=== PATIENT | female | born 1960 | race Caucasian/White ===

== ENCOUNTER → 2017-01-06 | Day surgery (SDC) | payer OTHER ==
[~2017-01-06] MED LIST: ACETAMINOPHEN 1000 MG/100 ML VIAL IV ONE; ACETAMINOPHEN/HYDROcodone 325 MG/5 MG TAB ONE; ALLE12TA PO; BUPIVACAINE/EPINEPHRINE 0.5% PF 10 ML VIAL ONE; CLINDAMYCIN PHOS 600 MG/4 ML VIAL ONE; ERGO50000 PO; GLUCTAB PO; LACTATED RINGER'S 1000 ML INJ 1,000 ML ONE; LIDOCAINE 1%/EPINEPHrine 1:100,000 SOLN 20 ML VIAL ONE; LORA0.5T PO; MEPERIDINE HCL 25 MG/ML VIAL ONE; MIDAZOLAM HCL 2 MG/2 ML VIAL ONE; ONDANSETRON HCL 4 MG/2 ML VIAL IV PUSH ONE; ONDANSETRON HCL 4 MG/2 ML VIAL ONE; PARO20TA PO; PROPOFOL 200 MG/20 ML AMP IV ONE; SODIUM CHLORIDE 0.9% 250 ML ADDBAG IV ONE; SULF-154 PO; [UNRECOGNIZED DRUG - OTHER] PO
--- NOTE | 2017-01-06 09:15 | TN ---
cc: CURTIS JONES M.D. DATE OF SURGERY 01/06/2017 PREOPERATIVE DIAGNOSIS Macromastic left breast. History of right breast cancer. Asymmetry POSTOPERATIVE DIAGNOSIS Macromastic left breast. PROCEDURE Left breast reduction. SURGEON Curtis Jones MD ANESTHESIA LMA general plus a total of 30 cc of 1% lidocaine with epinephrine mixed with 0.25% Marcaine at a 2:1 ratio. COMPLICATIONS None. PROCEDURE She was properly consented, marked, properly anesthetized, the skin sterilized with Betadine solution, sterile draping applied. Local anesthetic was done. The markings were done. The NAC was set at 23-cm from the sternal notch, 42-mm areolar diameter and we used an inferior pedicle of about 8-10 cm. With this, after utilizing the Ingrid's maneuver, the epithelization of the center pedicle was carried out leaving a 42-mm areolar diameter down to the base with 8-10 cm. The excessive skin at this point and breast tissue was removed laterally, superiorly and medially. Assured meticulous hemostasis. The closure of the flaps were done utilizing 2-0 Monocryl suture in the dermis and subcu. The new NAC was brought into the anatomical position and sutured as well utilizing the same suture material. Good viability of tissue was noted throughout and at the end of the case. For closure I utilized Prineo, Dermabond, absorbent dressings and a snug brassiere. Overall the patient tolerated the procedure well. She was awakened, extubated in the operating room and transferred back to the Post-Anesthesia Care Unit in stable condition. No complication appreciated. The patient tolerated the procedure fairly well. Curtis Jones MD [facility]INE /8:58 AM /9:09 AM CHANCE
== END | disposition home or self-care (01) ==
LOC: ESDC 06:17
PROVIDERS: ATTEND Plastic Surgery
DX: N65.1 Disproportion of reconstructed breast (principal); Z85.3 Personal history of malignant neoplasm of breast
CPT/HCPCS: 00402; 19318; 88305; J0131; J2175; J2250; J2405; J3010; J7120

== ENCOUNTER 2017-04-08 09:54 | Emergency (ER) | payer OTHER, MEDICARE ==
[~2017-04-08] VITALS: Ht 170.2 cm; Wt 100.0 kg
[~2017-04-08 09:54] MED LIST changes: -ACETAMINOPHEN 1000 MG/100 ML VIAL IV ONE; -ACETAMINOPHEN/HYDROcodone 325 MG/5 MG TAB ONE; -BUPIVACAINE/EPINEPHRINE 0.5% PF 10 ML VIAL ONE; -CLINDAMYCIN PHOS 600 MG/4 ML VIAL ONE; -LACTATED RINGER'S 1000 ML INJ 1,000 ML ONE; -LIDOCAINE 1%/EPINEPHrine 1:100,000 SOLN 20 ML VIAL ONE; -MEPERIDINE HCL 25 MG/ML VIAL ONE; -MIDAZOLAM HCL 2 MG/2 ML VIAL ONE; -ONDANSETRON HCL 4 MG/2 ML VIAL IV PUSH ONE; -ONDANSETRON HCL 4 MG/2 ML VIAL ONE; -PROPOFOL 200 MG/20 ML AMP IV ONE; -SODIUM CHLORIDE 0.9% 250 ML ADDBAG IV ONE
[2017-04-08 09:56] VITALS: BP 137/72; PULSE 80; RESP 18; TEMP 98; O2SAT 98
[2017-04-08] MEDS ORDERED: TRAD5TAB PO (10:04)
[2017-04-08] MEDS ORDERED: PRAV20TA2 PO (10:04)
[2017-04-08] MEDS ORDERED: FLUO1TAB3 PO (10:04)
[2017-04-08] MEDS ORDERED: METF500 PO (10:04)
[2017-04-08] MEDS ORDERED: METOCLOPRAMIDE HCL 10 MG/2 ML VIAL IV PUSH ONE (10:30)
[2017-04-08] MEDS ORDERED: SODIUM CHLOR 0.9% 1000 ML INJ 1,000 ML IV ONE (10:30)
[2017-04-08] MEDS ORDERED: MECLIZINE HCL 25 MG TAB PO ONE (10:30)
[2017-04-08] MEDS ORDERED: SODIUM CHLORIDE 0.9% FLUSH 10 ML FLUSH IVF PRN (10:30)
--- NOTE | 2017-04-08 10:34 | PD ---
HPI Chief Complaint: Dizziness Time Seen by Provider: 10:06 Travel History International Travel<30 days: No Contact w/Intl Traveler<30days: No Traveled to known affect area: No History of Present Illness HPI Patient is a 56-year-old female with history of vertigo, hypertension, hyperlipidemia, diabetes who presents to emergency with complaints of dizziness. Patient reports that she was outside working on her neighbors lawn and pulling weeds out this morning, reports that after an hour working outside, she began to feel lightheaded and dizzy. Patient reports that "it was really hot outside and I was sweating alot" reports that after an hour of work, she didn't feel right. She went inside and put a cold rag on her head and then took a shower. Reports that she felt a little better but when she stood up, she felt like headed and dizzy and vertiginous and reports "i felt like i was going to throw up." Patient reports that she feels as if the whole world is spinning at this time, reports acute onset of symptom, reports that she does feel better and has resolution of symptoms when she lays down and closes her eyes. Patient reports concern for possible heat exhaustion. Denies chest pain/sob at this time. Denies abdominal pain. No fever/chills. No other c/o. Reports that her did give her a bottle of water to drink - reports that she does feel a little better after the fluids PFSH Past Medical History Depression: Yes Cancer: Yes (BREAST 2001,2006,2013) Cardiovascular Problems: No Chemotherapy: Yes Diabetes: Yes Patient Takes Glucophage: Yes Diminished Hearing: No Endocrine: Yes Gastrointestinal Disorders: Yes (HEARTBURN, REFLUX, NAUSEA) Genitourinary: No Hepatitis: No Hiatal Hernia: No Hypertension: No Immune Disorder: No Musculoskeletal: Yes (LOWER BACK AND NECK, ARTHRITIS RIGHT SHOULDER) Neurologic: Yes (CARPAL TUNNEL BOTH HANDS WITH NUMBNESS neuropathy) Psychiatric: Yes (ANXIETY, DEPRESSION) Reproductive: No Respiratory: Yes (SLEEP APNEA (NO CPAP), CHRONIC COUGH) Immunizations Current: Yes Radiation Therapy: Yes (2001) Thyroid Disease: No Tetanus Vaccination: < 5 Years Influenza Vaccination: No ?: Not Menopausal: Yes Dilation and Curettage (D&C): Yes Past Surgical History Abdominal Surgery: No AICD: No Body Medical Devices: NONE Cardiac Surgery: No Endocrine Surgery: No Genitourinary Surgery: No Gynecologic Surgery: Yes (D&C NOT SURE) Joint Replacement: No Oral Surgery: Yes (tonsillectomy) Pacemaker: No Thoracic Surgery: Yes (R LUMPECTOMY 2001,2006, R MASTECTOMY 09/2014) Tonsillectomy: Yes Other Surgery: Yes ([facility]-PORT PLACED 04/15/14) Social History Alcohol Use: Yes ([facility]) Tobacco Use: No (QUIT IN 1987) Substance Use: No Allergies-Medications (Allergen,Severity, Reaction): Coded Allergies: Ibuprofen (Verified Allergy, Severe, NOSE BLEED, 11/08/14) Naprosyn (Verified Allergy, Severe, HIVES, 11/08/14) Penicillin (Verified Allergy, Severe, Rash/SOB, 11/08/14) Tamoxifen (Verified Allergy, Severe, HEADACHES, 11/08/14) Vancomycin (Verified Allergy, Severe, HEAD AND FACE TURN RED AND ITCHY, ) Adhesives (Verified Allergy, Intermediate, ITCH AND RASH, 11/08/14) Keflex (Verified Allergy, Intermediate, Hives, 11/08/14) Monistat 7 (Verified Allergy, Intermediate, LUMPS ON VAGINAL AREA, 11/08/14 ) Aspirin (Verified Allergy, Unknown, DOES NOT KNOW, 11/08/14) Celebrex (Verified Allergy, Unknown, DOES NOT REMEMBER, 11/08/14) Reported Meds & Prescriptions Reported Meds & Active Scripts Active Reported Pravastatin 20 Mg Tab 20 Mg PO DAILY Tradjenta (Linagliptin) 5 Mg Tab 5 Mg PO DAILY Fluoxetine (Fluoxetine HCl) 20 Mg Tab 20 Mg PO DAILY Glucophage (Metformin HCl) 500 Mg Tab 500 Mg PO BIDPC With meals Review of Systems General / Constitutional: No: Fever Eyes: No: Diploplia, Blurred Vision, Photophobia, Visual changes HENT: Positive: Vertigo, Lightheadedness, No: Headaches, Neck Stiffness, Neck Pain Cardiovascular: No: Chest Pain or Discomfort, Palpitations, Irregular Rhythm, Tachycardia Respiratory: No: Shortness of Breath Gastrointestinal: Positive: Nausea, Vomiting, No: Abdominal Pain Genitourinary: No: Dysuria Musculoskeletal: No: Pain Skin: No Rash Neurologic: Positive: Weakness, Dizziness, No: Syncope, Focal Abnormalities, Coordination Problem, Ataxia, Headache, Slurred Speech, Paresthesia, Incontinence, Seizures, Sensory Disturbance Psychiatric: No: Depression Endocrine: No: Polydipsia Hematologic/Lymphatic: No: Easy Bruising Physical Exam Narrative GENERAL: Mild distress SKIN: Focused skin assessment warm/dry. HEAD: Atraumatic. Normocephalic. EYES: Pupils equal and round. No scleral icterus. No injection or drainage. No nystagmus on exam ENT: No nasal bleeding or discharge. Mucous membranes pink and moist. NECK: Trachea midline. No JVD. CARDIOVASCULAR: Regular rate and rhythm. No murmur appreciated. RESPIRATORY: No accessory muscle use. Clear to auscultation. Breath sounds equal bilaterally. GASTROINTESTINAL: Abdomen soft, non-tender, nondistended. Hepatic and splenic margins not palpable. MUSCULOSKELETAL: No obvious deformities. No clubbing. No cyanosis. No edema. NEUROLOGICAL: Awake and alert. No obvious cranial nerve deficits. Motor grossly within normal limits. Normal speech. Cranial nerves to 12 grossly intact with no neurological deficits PSYCHIATRIC: Appropriate mood and affect; insight and judgment normal. Data Data Last Documented VS Vital Signs Date Time Temp Pulse Resp B/P Pulse Ox O2 Delivery O2 Flow Rate FiO2 04/08/17 11:41 76 18 131/70 96 Room Air 04/08/17 09:56 98.0 Orders Electrocardiogram (04/08/17 10:17) Basic Metabolic Panel (Bmp) (04/08/17 10:17) Ckmb (Isoenzyme) Profile (04/08/17 10:17) Complete Blood Count With Diff (04/08/17 10:17) Magnesium (Mg) (04/08/17 10:17) Prothrombin Time / Inr (Pt) (04/08/17 10:17) Act Partial Throm Time (Ptt) (04/08/17 10:17) Troponin I (04/08/17 10:17) Ecg Monitoring (04/08/17 10:17) Iv Access Insert/Monitor (04/08/17 10:17) Oximetry (04/08/17 10:17) Sodium Chloride 0.9% Flush (Ns Flush) (04/08/17 10:30) Ct Brain W/O Iv Contrast(Rout) (04/08/17 10:17) Sodium Chlor 0.9% 1000 Ml Inj (Ns 1000 M (04/08/17 10:30) Meclizine (Antivert) (04/08/17 10:30) Metoclopramide Inj (Reglan Inj) (04/08/17 10:30) Urinalysis - C+S If Indicated (04/08/17 11:18) Labs Laboratory Tests Test 04/08/17 04/08/17 10:30 11:25 White Blood Count 7.1 TH/MM3 Red Blood Count 4.13 MIL/MM3 Hemoglobin 11.9 GM/DL Hematocrit 36.0 % Mean Corpuscular Volume 87.3 FL Mean Corpuscular Hemoglobin 28.8 PG Mean Corpuscular Hemoglobin 33.0 % Concent Red Cell Distribution Width 12.9 % Platelet Count 269 TH/MM3 Mean Platelet Volume 7.3 FL Neutrophils (%) (Auto) 64.8 % Lymphocytes (%) (Auto) 26.5 % Monocytes (%) (Auto) 5.8 % Eosinophils (%) (Auto) 2.5 % Basophils (%) (Auto) 0.4 % Neutrophils # (Auto) 4.6 TH/MM3 Lymphocytes # (Auto) 1.9 TH/MM3 Monocytes # (Auto) 0.4 TH/MM3 Eosinophils # (Auto) 0.2 TH/MM3 Basophils # (Auto) 0.0 TH/MM3 CBC Comment DIFF FINAL Differential Comment Prothrombin Time 10.4 SEC Prothromb Time International 0.9 RATIO Ratio Activated Partial 21.4 SEC Thromboplast Time Sodium Level 137 MEQ/L Potassium Level 4.4 MEQ/L Chloride Level 103 MEQ/L Carbon Dioxide Level 24.6 MEQ/L Anion Gap 9 MEQ/L Blood Urea Nitrogen 12 MG/DL Creatinine 0.91 MG/DL Estimat Glomerular Filtration 64 ML/MIN Rate Random Glucose 206 MG/DL Calcium Level 8.9 MG/DL Magnesium Level 1.9 MG/DL Total Creatine Kinase 51 U/L Troponin I LESS THAN 0.02 NG/ML Urine Collection Type CLEAN CATCH Urine Color YELLOW Urine Turbidity CLEAR Urine pH 6.5 Urine Specific [place] 1.016 Urine Protein NEG mg/dL Urine Glucose (UA) NEG mg/dL Urine Ketones NEG mg/dL Urine Occult Blood NEG Urine Nitrite NEG Urine Bilirubin NEG Urine Leukocyte Esterase NEG Urine RBC 0-3 /hpf Urine WBC 0-2 /hpf Urine Squamous Epithelial 6-8 /hpf Cells Urine Hyaline Casts 10-14 /lpf Microscopic Urinalysis Comment CULT NOT INDICATED Urine Collection Time 11:25 [facility] Medical Decision Making Medical Screen Exam Complete: Yes Emergency Medical Condition: Yes Interpretation(s) EKG at 1027: NSR at 77bpm, qt/qtc: 376/408, no acute st or t wave changes, non acute ekg Vital Signs Date Time Temp Pulse Resp B/P Pulse Ox O2 Delivery O2 Flow Rate FiO2 04/08/17 09:58 81 18 04/08/17 09:56 98.0 80 18 137/72 98 Differential Diagnosis Differential includes vertigo, dehydration, rhabdomyolysis, electrolyte abnormality, ICH/CVA though unlikely Narrative Course Patient is a 56 year old female who presents to ER with complaints of dizziness and possible heat exhaustion. Reports that she was outside working today pulling her neighbor's weeds - reports that she was outside sweating for the past hour and then began to feel "weird" and light headed and dizzy. Patient then began to feel as if the world was spinning and felt nauseous. Patient reports that she is feeling much better after she drank a bottle water, reports that she still feels a little dizzy this time. She does have history of benign positional vertigo, reports that her dizziness has improved while sitting down and closing her eyes. Patient with normal neurological exam on evaluation, patient was placed on a compliance monitor upon arrival to emergency room. Lab work including CT of the head ordered. IV fluids, Antivert, Reglan ordered for nausea. Vital Signs Date Time Temp Pulse Resp B/P Pulse Ox O2 Delivery O2 Flow Rate FiO2 04/08/17 11:41 76 18 131/70 96 Room Air 04/08/17 10:37 79 18 120/56 97 Room Air 04/08/17 09:58 81 18 04/08/17 09:56 98.0 80 18 137/72 98 Laboratory Tests Test 04/08/17 04/08/17 10:30 11:25 White Blood Count 7.1 TH/MM3 (4.0-11.0) Red Blood Count 4.13 MIL/MM3 (4.00-5.30) Hemoglobin 11.9 GM/DL (11.6-15.3) Hematocrit 36.0 % (35.0-46.0) Mean Corpuscular Volume 87.3 FL (80.0-100.0) Mean Corpuscular Hemoglobin 28.8 PG (27.0-34.0) Mean Corpuscular Hemoglobin 33.0 % Concent (32.0-36.0) Red Cell Distribution Width 12.9 % (11.6-17.2) Platelet Count 269 TH/MM3 (150-450) Mean Platelet Volume 7.3 FL (7.0-11.0) Neutrophils (%) (Auto) 64.8 % (16.0-70.0) Lymphocytes (%) (Auto) 26.5 % (9.0-44.0) Monocytes (%) (Auto) 5.8 % (0.0-8.0) Eosinophils (%) (Auto) 2.5 % (0.0-4.0) Basophils (%) (Auto) 0.4 % (0.0-2.0) Neutrophils # (Auto) 4.6 TH/MM3 (1.8-7.7) Lymphocytes # (Auto) 1.9 TH/MM3 (1.0-4.8) Monocytes # (Auto) 0.4 TH/MM3 (0-0.9) Eosinophils # (Auto) 0.2 TH/MM3 (0-0.4) Basophils # (Auto) 0.0 TH/MM3 (0-0.2) CBC Comment DIFF FINAL Differential Comment Prothrombin Time 10.4 SEC (9.8-11.6) Prothromb Time International 0.9 RATIO Ratio Activated Partial 21.4 SEC Thromboplast Time (24.3-30.1) Sodium Level 137 MEQ/L (136-145) Potassium Level 4.4 MEQ/L (3.5-5.1) Chloride Level 103 MEQ/L (98-107) Carbon Dioxide Level 24.6 MEQ/L (21.0-32.0) Anion Gap 9 MEQ/L (5-15) Blood Urea Nitrogen 12 MG/DL (7-18) Creatinine 0.91 MG/DL (0.50-1.00) Estimat Glomerular Filtration 64 ML/MIN (>89) Rate Random Glucose 206 MG/DL (74-106) Calcium Level 8.9 MG/DL (8.5-10.1) Magnesium Level 1.9 MG/DL (1.5-2.5) Total Creatine Kinase 51 U/L (26-192) Troponin I LESS THAN 0.02 NG/ML (0.02-0.05) Urine Collection Type CLEAN CATCH Urine Color YELLOW (YELLW/STRAW) Urine Turbidity CLEAR (CLEAR) Urine pH 6.5 (5.0-8.5) Urine Specific [place] 1.016 (1.002-1.035) Urine Protein NEG mg/dL (NEG-TRACE) Urine Glucose (UA) NEG mg/dL (NEG) Urine Ketones NEG mg/dL (NEG) Urine Occult Blood NEG (NEG) Urine Nitrite NEG (NEG) Urine Bilirubin NEG (NEG) Urine Leukocyte Esterase NEG (NEG) Urine RBC 0-3 /hpf (0-3) Urine WBC 0-2 /hpf (0-5) Urine Squamous Epithelial 6-8 /hpf (0-5) Cells Urine Hyaline Casts 10-14 /lpf (RARE) Microscopic Urinalysis Comment CULT NOT INDICATED Urine Collection Time 11:[address] 04/08/17 1017 Signed Impressions: Service Date/Time: Saturday, April 08, 2017 10:42 - CONCLUSION: No acute disease. Joe Clements MD Patient reevaluated, patient with complete resolution of symptoms at this time. I reviewed all labs and all studies with patient detail, patient will drink plenty of fluids at home, she will follow-up with her primary care doctor and will return to emergency room as needed. Patient appreciative of care Diagnosis Primary Impression: Dizziness Additional Impression: Dehydration Patient Instructions: General Instructions Additional Instructions: Please drink plenty of fluids Please follow up with your primary care doctor Return to ER if symptoms worsen or progress Return to ER as needed Disposition: 01 DISCHARGE HOME Condition: Stable Alexus Harp DO Apr 08, 2017 10:34
[2017-04-08 10:37] VITALS: BP 120/56; PULSE 79; RESP 18; O2SAT 97
[2017-04-08 10:51] LABS: CHLORIDE 103 MEQ/L (98-107); POTASSIUM 4.4 MEQ/L (3.5-5.1); SODIUM (NA) 137 MEQ/L (136-145)
--- NOTE | 2017-04-08 10:52 | RADRPT ---
EXAM DATE/TIME: 04/08/2017 10:42 [facility] COMPARISON: No previous studies available for comparison. INDICATIONS : Dizziness. RADIATION DOSE: 57.40 CTDIvol (mGy) MEDICAL HISTORY : Carcinoma, breast. SURGICAL HISTORY : Tonsillectomy. Mastectomy, right. ENCOUNTER: Initial ACUITY: 1 day PAIN SCALE: 0/10 LOCATION: cranial TECHNIQUE: Multiple contiguous axial images were obtained of the head. Using automated exposure control and adj ustment of the mA and/or kV according to patient size, radiation dose was kept as low as reasonably a chievable to obtain optimal diagnostic quality images. DICOM format image data is available electro nically for review and comparison. FINDINGS: CEREBRUM: The ventricles are normal for age. No evidence of midline shift, mass lesion, hemorrhage or acute in farction. 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 No extra-axial fluid collections are seen. POSTERIOR FOSSA: The cerebellum and brainstem are intact. The 4th ventricle is midline. The cerebellopontine angle i s unremarkable. EXTRACRANIAL: The visualized portion of the orbits is intact. SKULL: The calvaria is intact. No evidence of skull fracture. CONCLUSION: No acute disease. Joe Clements MD on April 08, 2017 at 10:49 Board Certified Radiologist. This report was verified electronically.
[2017-04-08 10:53] LABS: AUTOMATED NEUTROPHIL # 4.6 TH/MM3 (1.8-7.7); BASOPHIL % 0.4 % (0.0-2.0); EOSINOPHIL # 0.2 TH/MM3 (0-0.4); EOSINOPHIL % 2.5 % (0.0-4.0); HEMO FLAGS DIFF FINAL; LYMPH % 26.5 % (9.0-44.0); LYMPHOCYTE # 1.9 TH/MM3 (1.0-4.8); MEAN CELL VOLUME 87.3 FL (80.0-100.0); MEAN CORPUSCULAR HEMOGLOBIN 28.8 PG (27.0-34.0); MONO % 5.8 % (0.0-8.0); NEUT % 64.8 % (16.0-70.0); PLATELET COUNT 269 TH/MM3 (150-450); RED BLOOD COUNT 4.13 MIL/MM3 (4.00-5.30); RED CELL DISTRIBUTION WIDTH 12.9 % (11.6-17.2); WHITE BLOOD COUNT 7.1 TH/MM3 (4.0-11.0)
[2017-04-08 10:55] LABS: ANION GAP 9 MEQ/L (5-15); BICARBONATE 24.6 MEQ/L (21.0-32.0); BLOOD UREA NITROGEN 12 MG/DL (7-18); MAGNESIUM 1.9 MG/DL (1.5-2.5)
[2017-04-08 10:56] LABS: APTT (PATIENT) 21.4 SEC (24.3-30.1); INTERNATIONAL NORMALIZED RATIO 0.9 RATIO; PROTHROMBIN TIME - PATIENT 10.4 SEC (9.8-11.6)
[2017-04-08 10:58] LABS: GLOMERULAR FILTRATION RATE 64 ML/MIN (>89)
[2017-04-08 11:05] LABS: CREATINE KINASE 51 U/L (26-192)
[2017-04-08 11:34] LABS: BLOOD, URINE NEG (NEG); GLUCOSE,URINE NEG (NEG); KETONE, URINE NEG (NEG); NITRITE,URINE NEG (NEG); PH, URINE 6.5 (5.0-8.5)
[2017-04-08 11:41] VITALS: BP 131/70; PULSE 76; RESP 18; O2SAT 96
[2017-04-08 11:44] LABS: COMMENT (UR) CULT NOT INDICATED; CULTURE IF INDICATED CULT NOT INDICATED; METHOD OF COLLECTION CLEAN CATCH; RBC, URINE 0-3 /hpf (0-3); URINE COLOR YELLOW (YELLW/STRAW); WBC, URINE 0-2 /hpf (0-5)
--- NOTE | 2017-04-08 13:38 | EKG ---
Date Performed: 04/08/2017 Time Performed: 10:27:38 PTAGE: 56 years EKG: Sinus rhythm NORMAL ECG Compared to the PREVIOUS TRACING Nonspecific T wave changes no longer present and rate has decreased . P REVIOUS TRACIN06/11/2014 18.48 DOCTOR: Nima Perez Interpretating Date/Time 04/08/2017 13:37:32
[2017-06-10] MEDS ORDERED: METF500T (09:30)
[2017-06-10] MEDS ORDERED: PARO30TA2 (09:30)
[2017-06-10] MEDS ORDERED: FLUT1INH INH (09:39)
[2017-06-10] MEDS ORDERED: GLIP1TAB PO (09:39)
[2017-06-10] MEDS ORDERED: LORA-373 PO (09:39)
[2017-06-10] MEDS ORDERED: FEXO15TA PO (09:39)
[2017-06-10] MEDS ORDERED: BAYE2MIS (09:39)
[2017-06-10] MEDS ORDERED: ASPI81CH37 CHEW (09:39)
[2017-06-10] MEDS ORDERED: CYAN100025 SL (09:39)
== END 2017-04-08 12:12 | disposition home or self-care (01) ==
LOC: PHED 09:54
DX: R42 Dizziness and giddiness (principal); E86.0 Dehydration; E11.9 Type 2 diabetes mellitus without complications; K21.9 Gastro-esophageal reflux disease without esophagitis; I10 Essential (primary) hypertension; Z79.84 Long term (current) use of oral hypoglycemic drugs
CPT/HCPCS: 70450; 80048; 81001; 82550; 83735; 84484; 85025; 85610; 85730; 93005; 96374; 99285; J2765; J7030